=== PATIENT | male | born 1960 | race Caucasian/White ===

== ENCOUNTER 2017-05-20 14:55 | Day surgery (SDC) | END 2017-05-20 22:30 | disposition home or self-care (01) ==

== ENCOUNTER 2018-04-29 12:17 | Day surgery (SDC) | payer OTHER ==
[2018-04-28 14:50] VITALS: Ht 180.3 cm; Wt 99.0 kg
[~2018-04-29] VITALS: Ht 180.3 cm; Wt 99.0 kg
[2018-04-29] VITALS (18 sets, daily range): BP systolic 107–168; BP diastolic 61–88; PULSE 68–86; RESP 16–24
--- NOTE | 2018-04-29 07:43 | HPN ---
Date/Time of Note Date/Time of Note DATE: 04/29/18 TIME: 07:43 Interval H&P Admission Note Pt. seen H&P reviewed: No system changes RODRIGO MCKEON MD Apr 29, 2018 07:43
[~2018-04-29 12:17] MED LIST: [UNRECOGNIZED DRUG - CODE] PO
[2018-04-29] MEDS ORDERED: AMLO5TAB4 PO (12:59)
[2018-04-29] MEDS ORDERED: RANI150T5 PO (13:01)
[2018-04-29] MEDS ORDERED: ALBU18HF INHALATION (13:01)
[2018-04-29] MEDS ORDERED: NAPR220C2 PO (13:01)
[2018-04-29] MEDS ORDERED: CEPH500C PO (13:02)
[2018-04-29] MEDS ORDERED: POLYMYXIN/BACITRACIN 1L IRRIG ONE (15:12)
[2018-04-29] MEDS ORDERED: BACITRACIN 0.9 GM OINT ONE (15:12)
--- NOTE | 2018-04-29 15:45 | PREAC ---
Date/Time of Note Date/Time of Note DATE: 04/29/18 TIME: 15:43 Anesthesia Eval and Record Evaluation Time Pre-Procedure Interview DATE: 04/29/18 TIME: 15:43 Age 57 Sex male NPO: 8 hrs Preoperative diagnosis bicept injury Planned procedure bicept repair Past Medical History Past Medical History: Includes Cardio: HTN Pulm: Asthma Surgery & Anesthesia Issues No known issue Meds Anticoagulation: No Beta Sohail within 24 hr: No Reason Beta Sohail not given: Pt. not on B-Sohail Reported Medications Cephalexin* (Cephalexin*) 500 Mg Capsule, 500 MG PO Q6, #28 CAP STARTED 04-28-18 04/29/18 Albuterol Sulfate* (Ventolin HFA*) 18 Gm Hfa.aer.ad, 2 PUFF INHALATION Q4H, #1 INHALER 04/29/18 Ranitidine Hcl* (Ranitidine Hcl*) 150 Mg Tablet, 150 MG PO Q12, #60 TAB 04/29/18 Naproxen* (Aleve*) 220 Mg Capsule, 440 MG PO BID, #60 CAP 04/29/18 Amlodipine Besylate* (Norvasc*) 5 Mg Tablet, 5 MG PO DAILY, TAB 04/29/18 Discontinued Reported Medications Amlodipine Bes/Olmesartan Med (Amlodipine-Olmesartan 5-20 mg) 1 Each Tablet, 1 EACH PO, TAB 05/20/17 Meds reviewed: Yes Allergies Coded Allergies: acetaminophen (Verified Allergy, Intermediate, hives, 04/29/18) Allergies Reviewed: Yes Labs/Studies Labs Reviewed: Reviewed by anesthesiologist test: N/A Pre-procedure Exam Last vitals Vital Signs Date Temp Pulse Resp B/P (MAP) Pulse Ox O2 O2 Flow FiO2 Time Delivery Rate 04/29/18 97.6 68 16 113/79 98 Room Air 13:14 (90) Airway: Adequate mouth opening, Adequate thyromental dist Mallampati: Mallampati IV Teeth: Normal Lung: Normal Heart: Normal ASA Physical Status ASA physical status: 2 Emergency: None Pre-operative Attestations Prior to commencing anesthesia and surgery, the patient was re-evaluated, there was verification of: *The patient's identity *The results of appropriate recent lab work and preoperative vital signs *The above evaluation not changing prior to induction *Anesthetic plan, risk benefits, alternative and complications discussed with patient/family; questions answered; patient/family understands, accepts and wishes to proceed. DONN LAWRENCE DO Apr 29, 2018 15:45
[2018-04-29] MEDS ORDERED: ROCURONIUM 50 MG INJ ONE (15:49)
[2018-04-29] MEDS ORDERED: PROPOFOL 20 ML ONE (15:49)
[2018-04-29] MEDS ORDERED: MIDAZOLAM 1 MG/ML 2 ML INJ ONE (15:49)
[2018-04-29] MEDS ORDERED: LIDOCAINE 1% (MDV) 20 ML INJ ONE (15:50)
[2018-04-29] MEDS ORDERED: DEXAMETHASONE 4 MG/ML 5 ML INJ ONE (15:53)
[2018-04-29] MEDS ORDERED: BUPIVACAINE 0.5% (SDV) 30 ML INJ ONE (15:53)
[2018-04-29] MEDS ORDERED: FAMOTIDINE 20 MG INJ ONE (16:12)
[2018-04-29] MEDS ORDERED: ONDANSETRON 4 MG INJ ONE (16:12)
[2018-04-29] MEDS ORDERED: CEFAZOLIN 1 GM INJ ONE (16:12)
[2018-04-29] MEDS ORDERED: THROMBIN (BOVINE) 5,000 UNIT VIAL TP ONE (16:46)
[2018-04-29] MEDS ORDERED: CA CHLORIDE (GM) 10% 10 ML INJ ONE (16:46)
[2018-04-29] MEDS ORDERED: CA CHLORIDE 10% 10 ML SYRINGE ONE (16:48)
[2018-04-29] MEDS ORDERED: NEOMYC/POLYMYX/BACIT 3.5GM OPH OINT ONE (18:14)
[2018-04-29] MEDS ORDERED: NEOMYC/POLYMYX/BACIT 30 GM OINT ONE (18:15)
--- NOTE | 2018-04-29 18:34 | SIPON ---
Date/Time of Note Date/Time of Note DATE: 04/29/18 TIME: 18:32 Operative Report Preoperative Diagnosis Right elbow re-rupture of distal biceps attachment Postoperative Diagnosis Right elbow re-rupture of distal biceps attachment Operation/Procedure Performed Right elbow revision repair of re-rupture of distal biceps attachment with allograft and PRP Surgeon Juan M Mckeon MD assistant director of plant operations Ochoa Forte MD Anesthesia: general (Broukhim), other (supraclavicular block) Estimated blood loss: minimal Transfusion Required none TT- 94 min at 250 mm HG Specimen none Grafts/Implants Conmed y knot x 2 Arthrex Amnion with PRP (6% Hct) Complications none JUAN M MCKEON MD Apr 29, 2018 18:34
--- NOTE | 2018-04-29 18:44 | PAC ---
Date/Time of Note Date/Time of Note DATE: 04/29/18 TIME: 18:43 Post-Anesthesia Notes Post-Anesthesia Note Last documented vital signs Vital Signs Date Temp Pulse Resp B/P (MAP) Pulse Ox O2 O2 Flow FiO2 Time Delivery Rate 04/29/18 98 70 16 114/72 98 Room Air 1843 Activity: WNL Respiratory function: WNL Cardiovascular function: WNL Mental status: Baseline Pain reasonably controlled: Yes Hydration appropriate: Yes Nausea/Vomiting absent: Yes DONN LAWRENCE DO Apr 29, 2018 18:44
[2018-04-29] MEDS ORDERED: HYDROmorphONE 1 MG/5 ML IV SYRINGE IV PRN ×2 (19:00)
[2018-04-29] MEDS ORDERED: ONDANSETRON 4 MG INJ IV PRN (19:00)
[2018-04-29] MEDS ORDERED: morphine 2 MG INJ IV PRN (19:00)
[2018-04-29] MEDS ORDERED: hydrALAzine 20 MG INJ ONE (19:29)
[2018-04-29] MEDS ORDERED: LABETALOL HCL 20MG INJ IV PRN (19:30)
[2018-04-29] MEDS ORDERED: hydrALAzine 20 MG INJ IV PRN (19:30)
--- NOTE | 2018-05-10 18:01 | OPR ---
DATE OF OPERATION: 04/29/2018 PREOPERATIVE DIAGNOSIS: Right elbow re-rupture of the distal biceps attachment. POSTOPERATIVE DIAGNOSIS: Right elbow re-rupture of the distal biceps attachment. OPERATION PERFORMED: Right elbow revision repair of the re-rupture of distal biceps attachment with amniotic allograft and PRP. SURGEON: Rodrigo Mckeon MD TRAVEL AGENT: Babak Whitley MD ANESTHESIA: General with a supraclavicular block. ANESTHESIOLOGIST: Dr. Dawson. ESTIMATED BLOOD LOSS: Minimal. TRANSFUSION REQUIREMENTS: None. TOURNIQUET TIME: 94 minutes at 200 mmHg. SPECIMENS: None. IMPLANTS: 1. Con Med Y-KNOT. 2. Arthrex Amnion. 3. Arthrex Kris PRP spun at 6 % hematocrit. COMPLICATIONS: None. INDICATIONS: The patient is a 57-year-old gentleman who is status post a right biceps tendon repair from 05/20/2017. 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 An MRI confirmed re-rupture of his biceps repair. The patient was indicated for surgery given re-rupture. Risk Note: Patient was explained the risks and benefits of surgery and the patient's [place] language including not limited to infection, bleeding, injury to blood vessels, nerves, ligaments or tendons. Risks of anesthesia, deep vein thrombosis and need for reduce future surgery. Patient acknowledged these risk by signing the surgical consent form. DESCRIPTION OF PROCEDURE: The patient was met in the preoperative holding area and the correct operative extremity was marked and confirmed with both patient and consent. The patient was brought back to the operative theater, placed supine on the operative table. The patient was given a preoperative supraclavicular block and then the patient was prepped, draped in normal sterile fashion.Everyone in the Operating room agreed it was The correct procedure, extremity and patient. A sterile tourniquet was placed on the upper arm of the operative extremity and tourniquet was brought to 250 mmHg. A transverse incision was made over the previous incision site over the distal antecubital fossa and the lateral antebrachial cutaneous nerve. Superficial radial nerve identified and retracted. There is great care to avoid any injury to the neurovascular structures. The distal biceps tendon was found just proximal to the antecubital fossa and retrieved and then the pseudotendon sheath was also debrided. The tendon stump was further mobilized and debrided. The radial tuberosity was then exposed by supination of the forearm with the stump further debrided with a rongeur and curet. Two Con Med Y-knot anchors were then placed in a parallel fashion to the radial tuberosity. The Con Med suture was then passed through multiple passes using the modified [place] suture technique, along the lateral middle and medial border of the tendon and then using a tensioning type of repair construct the tendon was then brought back to the radial tuberosity site. The arm was brought into 90 degrees of flexion, where it was tied down in a typical fashion. The wound was irrigated thoroughly and amniotic membrane was then placed over the tendon repair site after viscous PRP had been placed at the tendon repair site. The wound was then closed in layers with 3-0 Monocryl followed by 4-0 nylon. Wounds were dressed with Xeroform, 4 x 4's and placed in a well-padded long arm splint with the arm flexed to 90 degrees and 40 degrees supination. TRAVEL AGENT NOTE: Pulp Plant Supervisor surgeon was needed for this case to assist with positioning of the limb during the repair as well as reduction of the biceps tendon during a fraction of the case. Without orthopedic certified surgical first assistant during the case, the case would have been significantly more and longer. Thus should be compensated accordingly. MODIFIER 22 NOTE: Given the revision nature of this case and the complexity of debriding multiple massive amount of scar tissue with great care to avoid any injury to the surrounding neurovascular structures, this case required a great deal complexity and required at least significantly more time in order to manage this revision repair. Given that this case was more complex due to revision nature of the case, it should be awarded a modifier 22. Dictated By: RODRIGO MCEKON MD [facility] Conf#: [id number] DID#: [id number] CC: BABAK WHITLEY MD;*EndCC* MTDD
== END 2018-04-29 20:27 | disposition home or self-care (01) ==
LOC: SDS 12:17
PROVIDERS: ATTEND Orthopaedic Surgery
DX: S46.211D Strain of muscle, fascia and tendon of other parts of biceps, right arm, subsequent encounter (principal); X58.XXXD Exposure to other specified factors, subsequent encounter; I10 Essential (primary) hypertension; J45.909 Unspecified asthma, uncomplicated
CPT/HCPCS: 24341; 82306; J0360; J0690; J2250; J2405; J3010; Z7512; Z7610; J1100